=== PATIENT | female | born 1955 | race African-American/Black ===

== ENCOUNTER 2020-07-02 07:34 | Emergency (ER) | payer OTHER ==
--- NOTE | 2020-07-02 08:00 | Emergency Department Report ---
Blank Doc - Documentation Documentation: 64-year-old female that presents with generalized weakness and cough. Was pos itive for COVID 4 days ago. 1- This initial assessment/diagnostic orders/clinical plan/ treatment(s) is/are subject to change based on pt's health status, clinical progression and re- assessment by fellow clinical providers in the ED. Further treatment and workup at subsequent clinical provers discretion. Patient/guardians urged not to elope from ED as their condition may be serious if not clinically assessed and managed. 2-labs 3- CXR
--- NOTE | 2020-07-02 08:52 | XRay Report ---
CHEST 2 VIEWS INDICATION / CLINICAL INFORMATION: Chest Pain. COMPARISON: 11/25/08. FINDINGS: SUPPORT DEVICES: None. HEART / MEDIASTINUM: The heart size and pulmonary vasculature are normal. The aorta is normal in manav matti. LUNGS / PLEURA: No significant pulmonary or pleural abnormality. No pneumothorax. ADDITIONAL FINDINGS: No significant additional findings. IMPRESSION: No acute abnormality or significant change. Signer Name: Gómez Lin MD Signed: 07/02/2020 8:48 AM Workstation Name: [id number]
[2020-07-02 08:55] LABS: Basophils % (Auto) 0.4 % (0.0-1.8); Eosinophils # (Auto) 0.1 K/mm3 (0.0-0.4); Eosinophils % (Auto) 1.6 % (0.0-4.3); Hematocrit 35.5 % (30.3-42.9); Hemoglobin 12.7 gm/dl (10.1-14.3); Lymphocytes % (Auto) 24.9 % (13.4-35.0); Mean Corpuscular HGB Conc 36 % (30-34); Mean Corpuscular Volume 88 fl (79-97); Monocytes # (Auto) 0.3 K/mm3 (0.0-0.8); Monocytes % (Auto) 8.8 % (0.0-7.3); Platelet Count 270 K/mm3 (140-440); Red Blood Count 4.02 M/mm3 (3.65-5.03); Red Cell Distribution Width 13.8 % (13.2-15.2)
[2020-07-02 09:06] LABS: INR 0.98 (0.87-1.13)
[2020-07-02 09:07] LABS: Partial Thromboplastin Time 29.7 Sec. (24.2-36.6)
[2020-07-02 09:10] LABS: Alanine Aminotransferase 15 units/L (7-56); Blood Urea Nitrogen 6 mg/dL (7-17); Calcium 9.4 mg/dL (8.4-10.2); Hemolysis Index 6
[2020-07-02 09:14] LABS: BUN/Creatinine Ratio 12
--- NOTE | 2020-07-02 10:51 | Emergency Department Report ---
ED General Adult HPI - General Chief complaint: Upper Respiratory Infection Stated complaint: WEAKNESS,COUGH Time Seen by Provider: 07/02/20 07:59 Source: patient Mode of arrival: Ambulatory Limitations: No Limitations - History of Present Illness Initial comments: Patient is 64 years old female with history of hypertension. Patient recently diagnosed with COVID-19. Patient presented to the ER complaining of generalized weakness and cough. Patient also stated that she has been vomiting and having diarrhea. No vomiting observed in the ER. Patient currently denying any fever or chills. No chest pain or shortness of breath. Patient also denied any abdominal pain. - Related Data Home Medications Medication Instructions Recorded Confirmed Last Taken Lisinopril/Hydrochlorothiazide 1 tab PO QAM 12/24/13 12/24/13 12/23/13 09:00 [Zestoretic 20-12.5 mg] Pravastatin [Pravachol] 1 tab PO QHS 12/24/13 12/24/13 12/23/13 19:00 Previous Rx's Medication Instructions Recorded Last Taken Type Cyclobenzaprine [Flexeril] 10 mg PO Q8H PRN #21 tablet 12/24/13 Unknown Rx traMADoL [Ultram 50 MG tab] 50 mg PO Q6HR PRN #20 tablet 12/24/13 Unknown Rx Ranitidine HCl [Zantac] 300 mg PO QDAY #30 tablet 04/13/14 Unknown Rx Ibuprofen [Motrin] 600 mg PO Q8H PRN #20 tablet 02/08/19 Unknown Rx Famotidine [Pepcid] 20 mg PO Q12H #60 tablet 06/05/20 Unknown Rx Prednisone [predniSONE 10 mg 10 mg PO .TAPER #21 tab.ds.pk 06/05/20 Unknown Rx (6-Day Pack, 21 Tabs)] diphenhydrAMINE [Benadryl CAP] 25 mg PO Q6HR PRN #30 capsule 06/05/20 Unknown Rx Allergies Allergy/AdvReac Type Severity Reaction Status Date / Time No Known Allergies Allergy Unverified 12/24/13 08:10 ED Review of Systems ROS: Stated complaint: WEAKNESS,COUGH Other details as noted in HPI Comment: All other systems reviewed and negative Constitutional: denies: chills, fever Respiratory: cough. denies: orthopnea, shortness of breath, SOB with exertion, SOB at rest, wheezing Cardiovascular: denies: chest pain, palpitations Gastrointestinal: nausea, vomiting, diarrhea. denies: abdominal pain, constipation, hematemesis, melena, hematochezia Neurological: weakness (Generalized). denies: headache, numbness, paresthesias, confusion, abnormal gait ED Past Medical Hx - Past Medical History Previous Medical History?: Yes Hx Hypertension: Yes Hx Psychiatric Treatment: Yes (depression) Additional medical history: high cholesterol, insomnia - Surgical History Past Surgical History?: No - Social History Smoking Status: Never Smoker Substance Use Type: Prescribed - Medications Home Medications: Home Medications Medication Instructions Recorded Confirmed Last Taken Type Cyclobenzaprine [Flexeril] 10 mg PO Q8H PRN #21 tablet 12/24/13 Unknown Rx Lisinopril/Hydrochlorothiazide 1 tab PO QAM 12/24/13 12/24/13 12/23/13 09:00 History [Zestoretic 20-12.5 mg] Pravastatin [Pravachol] 1 tab PO QHS 12/24/13 12/24/13 12/23/13 19:00 History traMADoL [Ultram 50 MG tab] 50 mg PO Q6HR PRN #20 tablet 12/24/13 Unknown Rx Ranitidine HCl [Zantac] 300 mg PO QDAY #30 tablet 04/13/14 Unknown Rx Ibuprofen [Motrin] 600 mg PO Q8H PRN #20 tablet 02/08/19 Unknown Rx Famotidine [Pepcid] 20 mg PO Q12H #60 tablet 06/05/20 Unknown Rx Prednisone [predniSONE 10 mg 10 mg PO .TAPER #21 tab.ds.pk 06/05/20 Unknown Rx (6-Day Pack, 21 Tabs)] diphenhydrAMINE [Benadryl CAP] 25 mg PO Q6HR PRN #30 capsule 06/05/20 Unknown Rx ED Physical Exam - General Limitations: No Limitations General appearance: alert, in no apparent distress - Head Head exam: Present: atraumatic, normocephalic, normal inspection - Eye Eye exam: Present: normal appearance, PERRL - ENT ENT exam: Present: mucous membranes dry - Neck Neck exam: Present: normal inspection, full ROM. Absent: tenderness, meningismus, lymphadenopathy, thyromegaly - Respiratory Respiratory exam: Present: normal lung sounds bilaterally - Cardiovascular Cardiovascular Exam: Present: regular rate, normal rhythm, normal heart sounds - GI/Abdominal GI/Abdominal exam: Present: soft, normal bowel sounds. Absent: distended, tenderness, guarding, rebound, rigid, organomegaly, mass, bruit, pulsatile mass, hernia - Extremities Exam Extremities exam: Present: normal inspection, full ROM, normal capillary refill. Absent: tenderness, pedal edema, calf tenderness - Back Exam Back exam: Present: normal inspection, full ROM. Absent: CVA tenderness (R), CVA tenderness (L) - Neurological Exam Neurological exam: Present: alert, oriented X3, CN II-XII intact, normal gait, reflexes normal. Absent: motor sensory deficit - Psychiatric Psychiatric exam: Present: normal mood - Skin Skin exam: Present: warm, intact, normal color ED Course Vital Signs 07/02/20 07/02/20 07/02/20 07:37 12:07 12:15 Temperature 98.3 F Pulse Rate 78 61 Respiratory 18 15 Rate Blood Pressure 160/95 134/85 134/85 Blood Pressure [Left] O2 Sat by Pulse 97 99 99 Oximetry 07/02/20 07/02/20 07/02/20 12:18 12:26 12:30 Temperature Pulse Rate 64 68 Respiratory 16 18 11 L Rate Blood Pressure 156/93 Blood Pressure 134/85 [Left] O2 Sat by Pulse 98 99 Oximetry 07/02/20 07/02/20 07/02/20 12:45 13:00 13:15 Temperature Pulse Rate 61 63 64 Respiratory 12 10 L 13 Rate Blood Pressure 156/93 135/80 135/80 Blood Pressure [Left] O2 Sat by Pulse 99 99 99 Oximetry ED Medical Decision Making - Lab Data Result diagrams: 07/02/20 08:24 07/02/20 14:36 - EKG Data -: EKG Interpreted by Ca EKG shows normal: sinus rhythm Rate: normal - EKG Data Interpretation: no acute changes - Radiology Data Radiology results: report reviewed - Medical Decision Making Patient is 64 years old female with history of hypertension. Patient recently diagnosed with COVID-19. Patient presented to the ER complaining of generalized weakness and cough. Patient also stated that she has been vomiting and having diarrhea. No vomiting observed in the ER. Patient currently denying any fever or chills. No chest pain or shortness of breath. Patient also denied any abdominal pain. EKG is unremarkable. Chest x-ray is negative for acute finding. Labs reviewed and is unremarkable except for potassium of 2.7 which is replaced by 20 mEq IV and 40 mEq p.o. Repeat potassium is 3.7. Patient stated that she is feeling much better. Patient advised to follow-up with her primary doctor in the next 2 to 3 days and to return to the ER if she develop any new symptoms. Critical Care Time: Yes Critical care time in (mins) excluding proc time.: 30 Critical care attestation.: If time is entered above; I have spent that time in minutes in the direct care of this critically ill patient, excluding procedure time. ED Disposition Clinical Impression: Generalized weakness, Acute hypokalemia, COVID-19 Disposition: DC-01 TO HOME OR SELFCARE Is pt being admited?: No Condition: Stable Instructions: Hypokalemia (ED), COVID-19 Referrals: PRIMARY CARE, [Primary Care Provider] - 3-5 Days
[2020-07-02] MEDS ORDERED: POTASSIUM CHLORIDE ER 20 MEQ TAB PO ONE (10:52)
[2020-07-02] MEDS ORDERED: SODIUM CHLORIDE 0.9% 1000 ML 1,000 ML IV ONE (10:52)
[2020-07-02] MEDS: POTASSIUM CHLORIDE 10 MEQ 10 MEQ/100 ML BAG IV SCH ×2 (12:18→13:20)
[2020-07-02 16:45] VITALS: BP 127/81
== END 2020-07-02 16:46 | disposition home or self-care (01) ==
LOC: ED 07:34
DX: U07.1 COVID-19 (principal); E87.6 Hypokalemia; R53.1 Weakness; I10 Essential (primary) hypertension; F32.9 Major depressive disorder, single episode, unspecified; E78.00 Pure hypercholesterolemia, unspecified; Z79.899 Other long term (current) drug therapy
CPT/HCPCS: 36415; 71046; 80053; 84132; 84484; 85025; 85610; 85730; 93005; 96361; 96365; 99284; J3480; J7030

== ENCOUNTER 2022-05-01 13:52 | Emergency (ER) | payer MEDICARE, OTHER ==
[2022-05-01 14:59] VITALS: BP 132/57
[2022-05-01] MEDS ORDERED: diphenhydrAMINE 25 MG CAP PO ONE (16:47)
== END 2022-05-02 01:35 | disposition left against medical advice (07) ==
LOC: ED 13:52
DX: R21 Rash and other nonspecific skin eruption (principal); Z53.21 Procedure and treatment not carried out due to patient leaving prior to being seen by health care provider